=== PATIENT | male | born 1985 | race Caucasian/White ===

== ENCOUNTER 2016-06-15 08:07 | Outpatient (RCR) | payer OTHER | END 2016-08-13 13:30 | LOC: WSOH 08:07 | DX: M25.561 Pain in right knee (principal); X50.9XXA Other and unspecified overexertion or strenuous movements or postures, initial encounter; Y99.0 Civilian activity done for income or pay ==

== ENCOUNTER → 2017-12-06 | Outpatient (CLI) | payer OTHER | LOC: COL.RAD 08:08 | DX: S43.402A Unspecified sprain of left shoulder joint, initial encounter (principal); M89.311 Hypertrophy of bone, right shoulder; R60.9 Edema, unspecified | CPT/HCPCS: A9585; Q9967 ==